=== PATIENT | male | born 1975 | race African-American/Black ===

== ENCOUNTER → 2018-12-07 | Outpatient (CLI) | payer OTHER ==
[~2018-12-07] VITALS: Ht 170.2 cm; Wt 97.5 kg
[~2018-12-07] MED LIST: ACYCLOVIR 400400 MG PO; CARVEDILOL12.5 MG PO; CLARITIN10 MG PO; DIGOXIN125 MCG PO; ENTRESTO 97 MG1 EACH PO; LASIX 40 MG TAB40 M2 PO; POTASSIUM20 PO; SPIRONOLACTONE25 M1 PO; TIKOSYN500 MCG PO; XARELTO20 MG PO
[2018-12-07 12:13] VITALS: BP 100/58
[2018-12-07 12:23] LABS: HEMOGLOBIN 14.6 gm/dL (14.0-18.0); MCH 30.1 pg (26.0-34.0); MCHC 33.2 g/dL (28.0-37.0); MCV 90.5 fL (80.0-100.0); RBC 4.86 mil/uL (4.50-6.00)
[2018-12-07 12:35] LABS: ANION GAP 6 mmol/L (7-16); BUN 9 mg/dL (7-18); CALCIUM 9.2 mg/dL (8.5-10.1); CHLORIDE 102 mmol/L (98-107); CO2 32 mmol/L (21-32); GLUCOSE 92 mg/dL (70-99); POTASSIUM 3.8 mmol/L (3.5-5.1); SODIUM 140 mmol/L (136-145)
[2018-12-07 12:37] LABS: APTT 27.5 Seconds (25.0-31.3); PROTIME 10.2 Seconds (9.20-11.50)
[2018-12-07 12:39] LABS: ALBUMIN 3.8 g/dL (3.4-5.0); ALKALINE PHOSPHATASE 47 U/L (46-116); CHOLESTEROL 201 mg/dL (<200); HDL CHOLESTEROL 64 mg/dL (>40); LDL CHOLESTEROL 118 mg/dL (<100); SGOT 17 U/L (15-37); SGPT 40 U/L (30-65); TC:HDL 3.1 Ratio (Not establshd); TOTAL BILIRUBIN 0.8 mg/dL (<0.1-1.0); TOTAL PROTEIN 8.1 g/dL (6.4-8.2); TRIGLYCERIDE 99 mg/dL (<150); VLDL 20 mg/dL (<40)
[2018-12-07 12:40] LABS: SERUM ASSESSMENT Clear
[2018-12-07 14:02] VITALS: BP 110/48
--- NOTE | 2018-12-07 14:43 | EKG ---
[place] [address] ELECTROCARDIOGRAM REPORT Name: ASAD NUNEZ Room: [facility]#: [id number] Admission: 12/07/18 Attend Phys: Asad Barajas MD Discharge: Date of : 75 Report #: [id number] THIS REPORT FOR: //name// [facility] Test Date: 2018-12-07 Test Time: 12:52:44 Pat Name: ASAD NUNEZ Department: Room: Gender: M Pourer [employer] [place]le: : 1975 Requested By: Asad Barajas Order Number: [id number] Reading MD: Can Mota Measurements Intervals [place] Rate: 68 P: 38 UT: 214 QRS: 9 QRSD: 105 T: -8 QT: 445 QTc: 474 Interpretive Statements Sinus rhythm low voltage Prolonged UT interval Borderline T abnormalities, inferior leads No previous ECG available for comparison Electronically Signed On 12-07-2018 14:43:11 CDT by Can Mota [email or web address] <ELECTRONICALLY SIGNED> By: Can Mota MD, [facility] 12/07/18 1443 1252 1252 Can Mota MD, FACC /EPI
--- NOTE | 2018-12-07 18:15 | CARD ---
[address] [address] CARDIAC CATH REPORT Name: JOSEPH NUNEZ Room: [facility]#: [id number] Admission: 12/07/18 Attend Phys: Joseph Barajas MD Discharge: Date of : 75 Report #: [id number] THIS REPORT FOR: //name// APPROVED REPORT Study performed: 12/07/2018 12:54:12 Patient Status: Out-Patient Room #: Event Personnel: Joseph Barajas Electronic Masking System Operator, Bonnie Block RN L D Rn, Randy Mcclelland Langston, Anthony ARRT (R) Monitor, Verna Nolan RTR Monitor Exam: ICD generator change. Indications: ICD generator at elective replacement. The patient is a 43 year-old male with a history of nonischemic cardiomyopathy status post ICD placement for primary prevention. Intraoperative Conscious Sedation Sedation start time: 1312 Case end Time: 1331 Fentanyl 100 mcg Versed 3 mg Implanted Devices: Biotronik Ilivia 7 VRT, serial #[id number] single-lead pacing defibrillator generator. Explanted Devices: Medtronic Virtuoso II VR D274V, serial number [id number] single-chamber pacing defibrillator generator. Procedure After informed consent was obtained the patient was brought to the interventional radiology lab. The area of the left chest was prepped and draped in sterile fashion. Local anesthesia was achieved with 1% lidocaine. Next after an initial incision was made the existing pulse generator was explanted using electrocautery and blunt dissection. The device pocket was flushed with antibiotic solution. The new single-lead pacing ICD generators attached to the lead. The redundant lead and device were placed within the pocket. The deep tissue was closed using interrupted stitches of 2-0 Vicryl. The skin incision was then closed with a single subcuticular stitch of 4-0 Vicryl. Several Steri-Strips were placed across the incision. A sterile Telfa dressing was then covered with a Tegaderm. The patient tolerated the procedure [place] [address] CARDIAC CATH REPORT Name: JOSEPH NUNEZ Room: [facility]#: [id number] Admission: 12/07/18 Attend Phys: Joseph Barajas MD Discharge: Date of : 75 Report #: [id number] Conclusion 1. ICD generator at elective replacement. 2. Successful replacement of ICD generator. Recommendations 1. Follow-up site check in one week. 2. Follow-up ICD interrogation in one to 2 months. <ELECTRONICALLY SIGNED> By: Joseph Barajas MD, LOCATED [facility]IN [facility] 12/07/18 1815 181 1815Joseph Barajas MD, FACC /INF
== END | disposition home or self-care (01) ==
LOC: M.CL 11:53
PROVIDERS: Internal Medicine Cardiovascular Disease
DX: Z45.02 Encounter for adjustment and management of automatic implantable cardiac defibrillator (principal); I42.9 Cardiomyopathy, unspecified; Z79.899 Other long term (current) drug therapy; Z79.01 Long term (current) use of anticoagulants